=== PATIENT | female | born 1985 | race Caucasian/White ===

== ENCOUNTER 2017-03-27 10:00 | Emergency (ER) | payer OTHER ==
[2017-03-27 10:00] VITALS: BMI 36.1
[2017-03-27 10:09] VITALS: TEMP 98.7; O2SAT 100
--- NOTE | 2017-03-27 11:54 | ED PDOC ---
Arrival/HPI - History of Present Illness Time/Duration: Prior to Arrival Symptom Onset: Gradual Symptom Course: Worsening Context: Home - General Chief Complaint: Back Pain Time Seen by Provider: 03/27/17 10:54 - History of Present Illness Narrative History of Present Illness (Text): 03/27/17 11:46 31 yo female with no significant PMH presented with neck pain and pain in extremities. Patient states that over the past 2 months she has been experiencing pain, weakness and numbness in all four extremities mostly at night. However over the past 2 weeks her symptoms have been getting progressively worse. Over the past 4 days the pain has been occurring during the day as well. Patient describes a hot sensation in her extremities, and a sharp, cutting pain. Patient states the pain started at the back of her neck and spread sown to all 4 extremities. She denies fever, chills, sob, headaches. Denies recent travel outside [place]. (Christine Seaman) Past Medical History - Provider Review Nursing Documentation Reviewed: Yes - Travel History Have you recently traveled outside [place] w/in the past 3 mons?: No - Past History Past History: No Previous - Infectious Disease Hx of Infectious Diseases: None - Psychiatric Hx Substance Use: No - Surgical History Hx Section: Yes - Suicidal Assessment Feels Threatened In Home Enviroment: No Family/Social History - Physician Review Nursing Documentation Reviewed: Yes Family/Social History: No Known Family HX Smoking Status: Never Smoked Hx Alcohol Use: No Hx Substance Use: No Allergies/Home Meds Allergies/Adverse Reactions: Allergies No Known Allergies Allergy (Verified 03/27/17 10:05) Home Medications: Home Meds Medication Instructions Recorded Confirmed No Known Home Med 03/27/17 03/27/17 Review of Systems - Review of Systems Constitutional: Normal. absent: Fatigue, Fevers Eyes: Normal. absent: Vision Changes, Eye Pain ENT: Normal Respiratory: Normal. absent: SOB, Cough, Wheezing Cardiovascular: Normal. absent: Palpitations, Syncope Gastrointestinal: Normal. absent: Abdominal Pain, Constipation, Diarrhea, Nausea, Vomiting Genitourinary Female: Normal. absent: Dysuria, Frequency, Hematuria Musculoskeletal: Normal, Back Pain, Neck Pain, Myalgias Skin: Normal. absent: Rash, Pruritis, Laceration Neurological: Dizziness. absent: Headache Endocrine: Normal. absent: Diaphoresis Hemo/Lymphatic: Normal. absent: Easy Bleeding, Easy Bruising Psychiatric: Normal Physical Exam - Systems Exam Head: Present: Atraumatic, Normocephalic Pupils: Present: PERRL. No: Sluggish, Non-Reactive, Pinpoint Extroacular Muscles: Present: EOMI. No: Gaze Palsy, Entrapment Conjunctiva: Present: Normal Mouth: Present: Moist Mucous Membranes. No: Dry Pharnyx: Present: Normal. No: ERYTHEMA, EXUDATE Nose (External): Present: Atraumatic. No: Abrasion, Contusion Neck: Present: Normal Range of Motion, MIDLINE TENDERNESS Respiratory/Chest: Present: Clear to Auscultation, Good Air Exchange. No: Respiratory Distress, Accessory Muscle Use, Wheezes, Rhonchi, Tachypneic Cardiovascular: Present: Regular Rate and Rhythm, Normal S1, S2. No: Murmurs, Tachycardic Abdomen: Present: Tenderness, Normal Bowel Sounds. No: Distention, Peritoneal Signs Back: Present: Normal Inspection. No: Midline Tenderness, Paraspinal Tenderness Upper Extremity: Present: Normal ROM, NORMAL PULSES, Tenderness. No: Cyanosis, Swelling Lower Extremity: Present: NORMAL PULSES, Normal ROM, Tenderness. No: Edema, Cyanosis, Swelling Neurological: Present: GCS=15, CN II-XII Intact, Speech Normal Skin: Present: Warm, Dry, Normal Color. No: Rashes Psychiatric: Present: Alert, Oriented x 3 Vital Signs Temp Pulse Resp BP Pulse Ox 03/27/17 14:04 82 16 110/72 100 03/27/17 11:26 89 18 109/77 100 03/27/17 10:05 98.7 F 98 H 16 107/71 100 Medical Decision Making ED Course and Treatment: 03/27/17 15:14 Patient seen and examined with resident Came up with treatment and disposition plan with resident 31yo female with upper extr. and neck pain. states feels like numbness, tingling and paresthesias. pt has no focal neurological deficits on examination. no visual complaints. pt instructed to f/u with outpatient clinic/ physician for further w/u pt states she is asymptomatic on discharge and agrees with being dc'd home. states she feels comfortable being dc'd home from the ER. (Sharif Starkey) 03/27/17 12:01 Impression: 31 yo female with no significant PMH present with pain in all extremities. Differential Diagnosis included but are not limited to: cervical radiculopathy Plan: - CBC, CMP - CT of cervical spine -- Reassess and disposition Progress Notes: 03/27/17 13:35 - CT of cervical spine was unremarkable. Labs were reviewed all within normal limits. Results were discussed with patient, all questions answered. She is in agreement to be discharged home. (Jurgen,Christine) - Lab Interpretations Lab Results: 03/27/17 12:40 03/27/17 12:40 Lab Results 03/27/17 12:40: Sodium 139, Potassium 4.0, Chloride 105, Carbon Dioxide 24, Anion Gap 14, BUN 9, Creatinine 0.6, Est GFR ( Amer) > 60, Est GFR (Non- Af Amer) > 60, Random Glucose 103, Calcium 9.6 03/27/17 12:40: WBC 8.1 D, RBC 4.03, Hgb 12.2, Hct 36.6, MCV 90.8, MCH 30.3, MCHC 33.3, RDW 12.9, Plt Count 288, MPV 9.2 - RAD Interpretation Radiology Orders: 03/27/17 11:45 CERVICAL SPINE W/O CONTRAST [CT] Stat Disposition/Present on Arrival - Present on Arrival Any Indicators Present on Arrival: No History of DVT/PE: No History of Uncontrolled Diabetes: No Urinary Catheter: No History of Decub. Ulcer: No History Surgical Site Infection Following: None - Disposition Have Diagnosis and Disposition been Completed?: Yes Disposition Time: 13:40 Patient Plan: Discharge - Disposition Diagnosis: Cervical radiculopathy Disposition: HOME/ ROUTINE Condition: FAIR Additional Instructions: Please return to the emergency department for new or symptoms. Please return if you can not follow up with PMD in 1-2 days. Referrals: Efrain Tang MD [Staff Provider] - Follow up with primary PCP,NO [Primary Care Provider] - Follow up with primary
--- NOTE | 2017-03-27 12:32 | CT ---
PROCEDURE: CT Cervical Spine without contrast HISTORY: Neck pain COMPARISON: None available. TECHNIQUE: Axial computed tomography images were obtained of the cervical spine without the use of intravenous contrast. Coronal and sagittal reformatted images were created and reviewed. Radiation dose: Total exam DLP = 530 mGy-cm. This CT exam was performed using one or more of the following dose reduction techniques: Automated exposure control, adjustment of the mA and/or kV according to patient size, and/or use of iterative reconstruction technique. FINDINGS: VERTEBRAE: No fracture. Normal alignment. No destructive bony lesion. DISCS/SPINAL CANAL/NEURAL FORAMINA: No significant central canal or neural foraminal stenosis. Discs heights are grossly preserved. PARASPINAL SOFT TISSUES: Unremarkable. OTHER FINDINGS: None. IMPRESSION: Unremarkable CT of the cervical spine.
[2017-03-27 13:08] LABS: BLOOD UREA NITROGEN 9 mg/dL (7-21); CALCIUM 9.6 mg/dL (8.4-10.5); CARBON DIOXIDE 24 mmol/L (21-33); CHLORIDE 105 mmol/L (98-107); GFR AFRICAN-AMERICAN > 60; GLUCOSE,RANDOM 103 mg/dL (70-110); HEMATOCRIT 36.6 % (36.0-48.0); MEAN CELL VOLUME 90.8 fL (80.0-105.0); MEAN CORPUSCULAR HEMOGLOBIN 30.3 pg (25.0-35.0); MEAN CORPUSCULAR HGB CONC 33.3 g/dl (31.0-37.0); MEAN PLATELET VOLUME 9.2 fl (7.0-11.0); RED CELL DISTRIBUTION WIDTH 12.9 % (11.5-14.5); SODIUM 139 mmol/L (132-148); WHITE BLOOD COUNT 8.1 10^3/ul (4.5-11.0)
[2017-03-27 14:06] VITALS: BP 110/72; PULSE 82; RESP 16
== END 2017-03-27 14:06 | disposition home or self-care (01) ==
LOC: ED 10:00
DX: M54.12 Radiculopathy, cervical region (principal)

== ENCOUNTER 2018-08-29 23:57 | Observation (INO) | payer MEDICAID, OTHER ==
[2018-08-30 00:08] VITALS: BMI 33.6
[2018-08-30] MEDS ORDERED: Sodium Chloride 0.9% 1,000 ML IV STA (00:34)
[2018-08-30] MEDS ORDERED: TDAP Vaccine 0.5 mL Syr IM ONE (00:34)
--- NOTE | 2018-08-30 00:36 | ED PDOC ---
Arrival/HPI - General Historian: Patient - History of Present Illness Narrative History of Present Illness (Text): 08/30/18 00:33 Rachel Argueta is a 33 year old female, with no significant past medical history, who presents to the Emergency department status post fall 2 hours prior to arrival. Patient states she was taking a shower when she became dizzy and near-syncopal, described as feeling off-balance. Patient states she fell backwards and hit her left face/chin against a shower poly area supervisor on her way down. Patient sustained an abrasion to her chin and is complaining of neck pain, left- sided facial pain, headache, left shoulder pain, and dizziness. Patient states she continued to feel dizzy after falling and needed assistance getting up. Patient states she felt fine throughout the day and prior to the incident. Patient denies any chest pain, shortness of breath, nausea, vomiting, back pain, weakness/numbness/tingling in the extremities, or any other complaints. Time/Duration: 1-3 hours, Other (tonight) Symptom Course: Unchanged Activities at Onset: Light Context: Home, Slipped <Mercedes Ortiz - Last Filed: 08/30/18 01:45> <Melo Tesfaye - Last Filed: 08/30/18 05:03> - General Chief Complaint: Trauma Time Seen by Provider: 08/29/18 23:57 Past Medical History - Provider Review Nursing Documentation Reviewed: Yes - Travel History Have you recently traveled outside [place] w/in the past 3 mons?: No - Past History Past History: No Previous - Infectious Disease Hx of Infectious Diseases: None - Cardiac Hx Cardiac Disorders: No - Pulmonary Hx Respiratory Disorders: No - Neurological Hx Neurological Disorder: No - HEENT Hx HEENT Disorder: No - Renal Hx Renal Disorder: No - Endocrine/Metabolic Hx Endocrine Disorders: No - Hematological/Oncological Hx Blood Disorders: No - Integumentary Hx Dermatological Disorder: No - Musculoskeletal/Rheumatological Hx Musculoskeletal Disorders: No - Gastrointestinal Hx Gastrointestinal Disorders: No - Genitourinary/Gynecological Hx Genitourinary Disorders: No - Psychiatric Hx Psychophysiologic Disorder: No Hx Substance Use: No - Surgical History Hx Section: Yes - Anesthesia Hx Anesthesia: No - Suicidal Assessment Feels Threatened In Home Enviroment: No <Mercedes Ortiz - Last Filed: 08/30/18 01:45> Family/Social History - Physician Review Nursing Documentation Reviewed: Yes Family/Social History: Unknown Family HX Smoking Status: Never Smoked Hx Alcohol Use: No Hx Substance Use: No <MahendraMo martinezevelyne Mckeon - Last Filed: 08/30/18 01:45> Allergies/Home Meds <Mercedes Ortiz Linda - Last Filed: 08/30/18 01:45> <Melo Tesfaye - Last Filed: 08/30/18 05:03> Allergies/Adverse Reactions: Allergies No Known Allergies Allergy (Verified 03/27/17 10:05) Home Medications: Home Meds Medication Instructions Recorded Confirmed No Known Home Med 03/27/17 08/30/18 Review of Systems - Physician Review All systems were reviewed & negative as marked: Yes - Review of Systems Constitutional: Normal. absent: Fevers Eyes: absent: Vision Changes, Photophobia, Eye Pain ENT: Normal Respiratory: Normal. absent: SOB, Cough Cardiovascular: Palpitations, Other (+near-syncopal). absent: Chest Pain Gastrointestinal: Normal. absent: Abdominal Pain, Diarrhea, Nausea, Vomiting Genitourinary Female: Normal. absent: Dysuria, Frequency, Hematuria, Urine Output Changes Musculoskeletal: Neck Pain Skin: Normal, Other (abrasion to chin) Neurological: Headache, Dizziness. absent: Speech Changes Psychiatric: Normal. absent: Anxiety, Depression <MahendraMo martinezevelyne Mckeon - Last Filed: 08/30/18 01:45> Physical Exam Vital Signs Reviewed: Yes Vital Signs Temp Pulse Resp BP Pulse Ox 08/30/18 00:07 98.9 F 114 H 18 129/90 99 Temperature: Afebrile Blood Pressure: Normal Pulse: Regular Respiratory Rate: Normal Appearance: Positive for: Well-Appearing, Non-Toxic, Comfortable Pain Distress: None Mental Status: Positive for: Alert and Oriented X 3 - Systems Exam Head: Present: Normocephalic, Tenderness (Tenderness over left TMJ, tender to L inferior orbit), Abrasion (V-shaped superficial abrasion to left inferior chin). No: Swelling, Ecchymosis Pupils: Present: PERRL Extroacular Muscles: Present: EOMI. No: Entrapment Conjunctiva: Present: Normal Ears: Present: Normal, NORMAL TM, Normal Canal. No: Erythema, TM Bulging, Fluid, TM Perf Mouth: Present: Moist Mucous Membranes Pharnyx: Present: Normal. No: ERYTHEMA, EXUDATE, TONSILS ENLARGED, Peritonsilar Swelling, Uvular Deviation, Muffled/Hoarse Voice, Strider, Soft Palate/Uvular Edema Nose (External): Present: Atraumatic Nose (Internal): Present: Normal Inspection Neck: Present: MIDLINE TENDERNESS (Midline cervical tenderness), Paraspinal Tenderness (Left-sided paraspinal and trapezius tenderness). No: Meningeal Signs Respiratory/Chest: Present: Clear to Auscultation, Good Air Exchange. No: Respiratory Distress, Accessory Muscle Use Cardiovascular: Present: Regular Rate and Rhythm, Normal S1, S2. No: Murmurs Abdomen: No: Tenderness, Distention, Peritoneal Signs Back: Present: Normal Inspection Upper Extremity: Present: Tenderness (Tenderness to posterior left shoulder), Other (Golf-ball sized area of ecchymosis to left shoulder). No: Cyanosis, Edema Lower Extremity: Present: Normal Inspection, NORMAL PULSES, Normal ROM. No: Edema Neurological: Present: GCS=15, Speech Normal, Motor Func Grossly Intact (Motor strength 5/5 in all extremities), Normal Sensory Function, Normal Cerebellar Funct Skin: Present: Warm, Dry, Normal Color. No: Rashes Psychiatric: Present: Alert, Oriented x 3, Normal Insight, Normal Concentration <Mercedes Ortiz - Last Filed: 08/30/18 01:45> Vital Signs Temp Pulse Resp BP Pulse Ox 08/30/18 00:07 98.9 F 114 H 18 129/90 99 <Melo Tefsaye - Last Filed: 08/30/18 05:03> Medical Decision Making ED Course and Treatment: 08/30/18 00:33 Impression: 33 year old female complaining of headache, left-sided facial pain, neck pain, and dizziness s/p fall Plan: -- CT Head w/o contrast -- CT Maxillofacial w/o contrast -- CT Cervical Spine w/o contrast -- EKG -- Chest X-ray -- XR Left Shoulder -- CBC, CMP, cardiac enzymes -- Urinalysis, urine cultures -- IV fluids -- TDAP -- Reassess and disposition Prior Visits: Notes and results from previous visits were reviewed. Progress Notes: Ekg; sinus tachycardia at 113 bpm normal axis no ST elevations 08/30/18 01:43 case signed out to dr. tesfaye pending labs/ct/xrays/ re-evaluation and disposition. <Mercedes Ortiz - Last Filed: 08/30/18 01:45> ED Course and Treatment: 08/30/18 03:41 Reviewed radiology, XR Left Shoulder shows no acute processes/fracture. Chest X-ray shows no acute processes. CT Head: Normal size of the ventricles and extra-axial spaces for the patient's age. Normal white matter tracts of the supratentorial brain. Normal basal ganglia and thalami. Normal brainstem. Normal cerebellum. There is no demonstrated extra-axial, intraparenchymal, or intraventricular hemorrhage. There are no findings of an acute ischemic infarction. Normal calvarium. There is no demonstrated fracture. Normal soft tissue structures. Normal visualized paranasal sinuses. IMPRESSION: Normal unenhanced CT scan of the brain. Electronically signed on Aug 30, 2018 4:01:16 AM EST by: Hans Che M.D., Certified by BARBI, K, Neuroradiology CT Maxillofacial: Left maxillary dentigerous cyst. Associated sinusitis. Normal bilateral orbital contents. Normal bilateral medial and inferior orbital hopper. Normal bilateral maxillary bones. Normal bilateral maxillary sinuses. Normal bilateral frontozygomatic arches. Normal bilateral zygomatic temporal arches. Normal nasal bones. Normal anterior nasal spine. There is no demonstrated fracture. Normal visualized frontal, ethmoidal and sphenoid sinuses. Impression: No CT evidence of acute bone pathology. Electronically signed on Aug 30, 2018 4:24:07 AM EST by: Hans Che M.D., Certified by BARBI, MSHiral, Neuroradiology 08/30/18 04:50 CT Cervical Spine: Normal craniovertebral junction. Normal anterior atlantoaxial articulation. Normal odontoid process. Normal cervical lordosis. Normal vertebral bodies and posterior osseous elements. C2-3: Normal endplates. Normal disc height and morphology. Normal bilateral uncovertebral and apophyseal joints. Normal central canal and intervertebral neuroforamina. C3-4: Normal endplates. Normal disc height and morphology. Normal bilateral uncovertebral and apophyseal joints. Normal central canal and intervertebral ne uroforamina. C4-5: Normal endplates. Normal disc height and morphology. Normal bilateral uncovertebral and apophyseal joints. Normal central canal and intervertebral neuroforamina. C5-6: Normal endplates. Normal disc height and morphology. Normal bilateral uncovertebral and apophyseal joints. Normal central canal and intervertebral neuroforamina. C6-7: Normal endplates. Normal disc height and morphology. Normal bilateral uncovertebral and apophyseal joints. Normal central canal and intervertebral neuroforamina. C7-T1: Normal endplates. Normal disc height and morphology. Normal bilateral uncovertebral and apophyseal joints. Normal central canal and intervertebral neuroforamina. Normal visualized soft tissue structures. IMPRESSION: Normal unenhanced CT examination of the cervical spine. Electronically signed on Aug 30, 2018 4:49:46 AM EST by: Hans Che M.D., Certified by ABR, MSK, Neuroradiology 08/30/18 04:50 Case discussed with medical aides teacher information technology manager, who is aware and agrees with plan. 08/30/18 04:[address] José Manuel Negrete, who is aware and agrees with plan. Accepts pt in to hospitalist service. Pt will go to Telemetry observation for near-syncope, dizziness, for headache/neck/facial injury. - Lab Interpretations I have reviewed the lab results: Yes - RAD Interpretation Radiology Orders: 08/30/18 00:32 CERVICAL SPINE W/O CONTRAST [CT] Stat HEAD W/O CONTRAST [CT] Stat MAXILLOFACIAL W/O CONTRAST [CT] Stat 08/30/18 00:33 CHEST PORTABLE [RAD] Stat 08/30/18 00:34 SHOULDER LEFT [RAD] Stat Contract Sheltered Workshop Supervisor: Radiologist - Medication Orders Current Medication Orders: Sodium Chloride (Sodium Chloride 0.9%) 1,000 mls @ 999 mls/hr IV .Q1H1M STA Stop: 08/30/18 01:34 Last Admin: 08/30/18 01:21 Dose: 999 mls/hr eMAR Start Stop Document 08/30/18 01:21 OCS (Rec: 08/30/18 01:21 OCS [id number]) Intravenous Solution Start Date 08/30/18 Start Time 01:21 End Date 08/30/18 End time 02:22 Total Infusion Time 61 Discontinued Medications Tetanus/Reduced Diphtheria/Acell Pertussis (Boostrix Vaccine Inj) 0.5 ml IM .ONCE ONE Stop: 08/30/18 00:35 Last Admin: 08/30/18 01:20 Dose: 0.5 ml <LuchoMelo - Last Filed: 08/30/18 05:03> - Scribe Statement The provider has reviewed the documentation as recorded by the Jerson Joe Provider Scribe Attestation: All medical record entries made by the Scribe were at my direction and personally dictated by me. I have reviewed the chart and agree that the record accurately reflects my personal performance of the history, physical exam, medical decision making, and the department course for this patient. I have also personally directed, reviewed, and agree with the discharge instructions and disposition. <Mercedes Ortiz - Last Filed: 08/30/18 01:45> - PA / MANAGER OF PMO / Resident Statement / has reviewed & agrees with the documentation as recorded. / has examined the patient and agrees with the treatment plan. <Melo Tesfaye - Last Filed: 08/30/18 05:03> Disposition/Present on Arrival - Present on Arrival Any Indicators Present on Arrival: No History of DVT/PE: No History of Uncontrolled Diabetes: No Urinary Catheter: No History of Decub. Ulcer: No History Surgical Site Infection Following: None - Disposition Disposition Time: 01:45 <Mercedes Ortiz - Last Filed: 08/30/18 01:45> - Present on Arrival Any Indicators Present on Arrival: No History of DVT/PE: No History of Uncontrolled Diabetes: No Urinary Catheter: No History of Decub. Ulcer: No History Surgical Site Infection Following: None - Disposition Have Diagnosis and Disposition been Completed?: Yes Disposition Time: 05:02 <Melo Tesfaye - Last Filed: 08/30/18 05:03> - Disposition Diagnosis: Near syncope, Head injury, Neck injury, Facial injury Disposition: HOSPITALIZED Condition: STABLE Referrals: Javi Ruano MD [Primary Care Provider] - Follow up with primary Forms: [employer] (Citizen Of [place])
[2018-08-30 02:10] LABS: ALB/GLOB RATIO 1.2 (1.1-1.8); ALBUMIN 4.5 g/dL (3.0-4.8); ALT/SGPT 32 U/L (7-56); AST/SGOT 28 U/L (14-36); BLOOD UREA NITROGEN 8 mg/dL (7-21); CALCIUM 9.5 mg/dL (8.4-10.5); GFR NON-AFRICAN AMERICAN > 60
[2018-08-30 02:21] LABS: TROPONIN I 0.02 ng/mL
[2018-08-30 02:32] LABS: BASO # 0.02 K/mm3 (0.0-2.0); BASO % 0.2 % (0.0-3.0); EOS % 0.1 % (1.5-5.0); GRAN # 9.19 (1.4-6.5); GRAN % 75.5 % (50.0-68.0); HEMOGLOBIN 12.8 g/dL (12.0-16.0); LYMPH # 2.2 (1.2-3.4); LYMPH % 18.2 % (22.0-35.0); MEAN CELL VOLUME 87.9 fl (80.0-105.0); MEAN CORPUSCULAR HEMOGLOBIN 29.8 pg (25.0-35.0); MEAN CORPUSCULAR HGB CONC 33.9 g/dl (31.0-37.0); MEAN PLATELET VOLUME 9.3 fl (7.0-11.0); MONO # 0.7 (0.1-0.6); RBC 4.3 10^6/uL (3.5-6.1); RED CELL DISTRIBUTION WIDTH 12.5 % (11.5-14.5); URINE BILIRUBIN NEGATIVE (NEGATIVE); URINE BLOOD NEGATIVE (NEGATIVE); URINE GLUCOSE (UA) NEGATIVE (NEGATIVE); URINE LEUKOCYTE ESTERASE NEGATIVE Leu/uL (NEGATIVE); URINE PROTEIN NEGATIVE mg/dL (<30 mg/dL); URINE UROBILINOGEN 0.2 E.U./dL (<1 E.U./dL); WHITE BLOOD COUNT 12.2 10^3/uL (4.5-11.0)
[2018-08-30 02:38] LABS: URINE APPEARANCE CLEAR (CLEAR); URINE COLOR LIGHT YELLOW (YELLOW)
--- NOTE | 2018-08-30 05:33 | CP.PCM.HP ---
History of Present Illness - History of Present Illness History of Present Illness: Gilmar Goodson DO, PGY-1 Hospitalist Admission History and Physical for Dr. Sebastián Negrete CC: pre-syncope, fall HPI: Ms. Argueta is a 33 year old female with no PMH who presented to ED following a fall yesterday evening while she was in the shower. She states that she was in the shower, the water was hot, the room was steamy and she began to feel light-headed. After she began to feel dizzy, she slipped and fell on the back of her head and neck on to the edge of the tub. She continued to feel dizzy and felt unable to get up. Only her two children were at home and a neighbor was called to help her up. Since the incident, she has been feeling worsening head and neck pain with nausea but denies feeling dizzy. She has not had any syncopal or pre-syncopal episodes similar to this in the past. Aside from THORNE, neck pain, nausea, and feeling anxious in the hospital since the incident she denies fever/chills, CP, SOB, palpitations, blurred vision, changes in urination, vomiting/abdominal pain, or peripheral pain/weakness. PMD: Javi Ruano Past Medical Hx: none Past Surgical Hx: c/s x 1 Allergies: NKA Home medications: no home medications Family Hx: reviewed, non-contributory Social Hx: denies current or prior tobacco, alcohol, or drug use. She has two young children at home and is a full-time home teaching grades 9 thru 12 teacher. Pharmacy: no preferred pharmacy Present on Admission - Present on Admission Any Indicators Present on Admission: No History of DVT/PE: No History of Uncontrolled Diabetes: No Urinary Catheter: No Decubitus Ulcer Present: No Review of Systems - Constitutional Constitutional: absent: Chills, Fever - EENT Eyes: absent: Blurred Vision - Cardiovascular Cardiovascular: absent: Chest Pain, Chest Pain at Rest, Chest Pain with Activity, Diaphoresis, Dyspnea, Palpitations - Respiratory Respiratory: absent: Cough, Dyspnea, Wheezing - Gastrointestinal Gastrointestinal: Nausea. absent: Abdominal Pain, Vomiting - Genitourinary Genitourinary: absent: Change in Urinary Stream, Difficulty Urinating - Neurological Neurological: Headaches. absent: Dizziness, Numbness, Syncope, Weakness Past Patient History - Infectious Disease Hx of Infectious Diseases: None - Past Social History Smoking Status: Never Smoked - CARDIAC Hx Cardiac Disorders: No - PULMONARY Hx Respiratory Disorders: No - NEUROLOGICAL Hx Neurological Disorder: No - HEENT Hx HEENT Problems: No - RENAL Hx Chronic Kidney Disease: No - ENDOCRINE/METABOLIC Hx Endocrine Disorders: No - HEMATOLOGICAL/ONCOLOGICAL Hx Blood Disorders: No - INTEGUMENTARY Hx Dermatological Problems: No - MUSCULOSKELETAL/RHEUMATOLOGICAL Hx Musculoskeletal Disorders: No - GASTROINTESTINAL Hx Gastrointestinal Disorders: No - GENITOURINARY/GYNECOLOGICAL Hx Genitourinary Disorders: No - PSYCHIATRIC Hx Psychophysiologic Disorder: No Hx Substance Use: No - SURGICAL HISTORY Hx Section: Yes - ANESTHESIA Hx Anesthesia: No Meds Allergies/Adverse Reactions: Allergies Allergy/AdvReac Type Severity Reaction Status Date / Time No Known Allergies Allergy Verified 03/27/17 10:05 Physical Exam - Constitutional Appears: Non-toxic, No Acute Distress - Head Exam Head Exam: ATRAUMATIC, NORMOCEPHALIC - Eye Exam Eye Exam: EOMI, Normal appearance, PERRL - ENT Exam ENT Exam: Mucous Membranes Moist - Neck Exam Neck exam: Positive for: Full Rom, Normal Inspection, Tenderness (paraspinal tenderness to palpation). Negative for: Lymphadenopathy, Meningismus, Th yromegaly - Respiratory Exam Respiratory Exam: Clear to Auscultation Bilateral, NORMAL BREATHING PATTERN. absent: Rales, Rhonchi, Wheezes - Cardiovascular Exam Cardiovascular Exam: Tachycardia, REGULAR RHYTHM, +S1, +S2. absent: Diastolic murmur, Gallop, Rubs, Systolic Murmur - GI/Abdominal Exam GI & Abdominal Exam: Normal Bowel Sounds, Soft. absent: Guarding, Tenderness - Extremities Exam Extremities exam: Positive for: normal inspection. Negative for: pedal edema - Back Exam Back exam: NORMAL INSPECTION - Neurological Exam Neurological exam: Alert, Oriented x3 - Psychiatric Exam Psychiatric exam: Anxious - Skin Skin Exam: Dry, Intact, Warm Results - Vital Signs Recent Vital Signs: Last Vital Signs Temp 98.9 F 08/30/18 00:07 Pulse 102 H 08/30/18 05:25 Resp 18 08/30/18 05:25 BP 147/90 08/30/18 05:25 Pulse Ox 99 08/30/18 05:25 - Labs Result Diagrams: 08/30/18 01:40 08/30/18 01:40 Labs: Laboratory Results - last 24 hr 08/30/18 08/30/18 08/30/18 01:40 01:40 01:40 WBC 12.2 H RBC 4.30 Hgb 12.8 Hct 37.8 MCV 87.9 MCH 29.8 MCHC 33.9 RDW 12.5 Plt Count 364 MPV 9.3 Gran % 75.5 H Lymph % (Auto) 18.2 L [place] % (Auto) 6.0 Eos % (Auto) 0.1 L Baso % (Auto) 0.2 Gran # 9.19 H Lymph # (Auto) 2.2 [place] # (Auto) 0.7 H Eos # (Auto) 0.0 Baso # (Auto) 0.02 Sodium 140 Potassium 3.7 Chloride 104 Carbon Dioxide 26 Anion Gap 13 BUN 8 Creatinine 0.7 Est GFR ( Amer) > 60 Est GFR (Non-Af Amer) > 60 Random Glucose 107 Calcium 9.5 Total Bilirubin 0.7 AST 28 ALT 32 Alkaline Phosphatase 77 Lactate Dehydrogenase 605 Total Creatine Kinase 220 Troponin I 0.02 D Total Protein 8.3 Albumin 4.5 Globulin 3.7 Albumin/Globulin Ratio 1.2 Urine Color Light yellow Urine Appearance Clear Urine pH 6.0 Ur Specific [place] 1.010 Urine Protein Negative Urine Glucose (UA) Negative Urine Ketones Negative Urine Blood Negative Urine Nitrate Negative Urine Bilirubin Negative Urine Urobilinogen 0.2 Ur Leukocyte Esterase Negative Assessment & Plan - Assessment and Plan (Free Text) Assessment: 33 yo F with no PMH is admitted following pre-syncopal symptoms and fall. Plan: 1. Fall Pre-syncopal symptoms and subsequent fall likely due to heat/steam from shower Will complete pre-syncopal w/u with TTE, b/l carotid duplex, orthostatic VS, TSH Consider cardiology and/or neurology consultation if any of the w/u is abnormal 2. Head/neck pain Likely 2/2 musculoskeletal strain from fall, no concerning meningeal s/sx CT head, maxiofacial, and cervical spine negative for fx or other acute process Motrin PRN for pain and zofran PRN for nausea 3. Elevated HR, BP Likely 2/2 anxiety from prior fall and/or being in the hospital Patient states she is anxious at this time Continue to monitor Consider treatment for HTN if elevated BP readings persist DVT/GI PPX: SCD, protonix Full Code Regular diet Monitor on remote tele Case and plan reviewed and discussed with my attending Dr. Sebastián Goodson, DO IM Resident PGY-1
[2018-08-30 06:10] LABS: BASO # 0.02 K/mm3 (0.0-2.0); BASO % 0.2 % (0.0-3.0); EOS % 0.2 % (1.5-5.0); GRAN # 6.81 (1.4-6.5); GRAN % 64.9 % (50.0-68.0); HEMOGLOBIN 11.4 g/dL (12.0-16.0); LYMPH # 3.1 (1.2-3.4); LYMPH % 29.2 % (22.0-35.0); MEAN CELL VOLUME 88.2 fl (80.0-105.0); MEAN CORPUSCULAR HEMOGLOBIN 29.3 pg (25.0-35.0); MEAN CORPUSCULAR HGB CONC 33.2 g/dl (31.0-37.0); MEAN PLATELET VOLUME 9.1 fl (7.0-11.0); MONO # 0.6 (0.1-0.6); MONO % 5.5 % (1.0-6.0); RBC 3.89 10^6/uL (3.5-6.1); RED CELL DISTRIBUTION WIDTH 12.6 % (11.5-14.5); WHITE BLOOD COUNT 10.5 10^3/uL (4.5-11.0)
[2018-08-30] MEDS: Pantoprazole 40 mg EC Tab PO SCH (06:28)
[2018-08-30 06:43] LABS: ALB/GLOB RATIO 1.2 (1.1-1.8); ALBUMIN 4.1 g/dL (3.0-4.8); ALT/SGPT 32 U/L (7-56); AST/SGOT 25 U/L (14-36); BLOOD UREA NITROGEN 5 mg/dL (7-21); CALCIUM 8.7 mg/dL (8.4-10.5); GFR NON-AFRICAN AMERICAN > 60
--- NOTE | 2018-08-30 08:46 | CARD ---
APPROVED REPORT Date of service: 08/30/2018 EKG Measurement Heart [id number] ID [id number] <Conclusion> Sinus tachycardia Otherwise normal ECG
--- NOTE | 2018-08-30 09:30 | CT ---
Date of service: 08/30/2018 PROCEDURE: CT HEAD WITHOUT CONTRAST. HISTORY: Headache COMPARISON: 09/29/2016. TECHNIQUE: Axial computed tomography images were obtained through the head/brain without intravenous contrast. Radiation dose: Total exam DLP = 844.59 mGy-cm. This CT exam was performed using one or more of the following dose reduction techniques: Automated exposure control, adjustment of the mA and/or kV according to patient size, and/or use of iterative reconstruction technique. FINDINGS: HEMORRHAGE: No intracranial hemorrhage. BRAIN: [place]-white matter differentiation is preserved. There is no mass, mass effect or abnormal extra-axial fluid collection. There is no territorial infarction. The midline sagittal structures are normal. VENTRICLES: The ventricles are normal in size, shape and configuration. CALVARIUM: There is no calvarial fracture or extracranial soft tissue swelling. PARANASAL SINUSES: Predominantly clear. MASTOID AIR CELLS: Predominantly clear. OTHER FINDINGS: None. IMPRESSION: No acute intracranial abnormality. A preliminary report was provided by [employer].
--- NOTE | 2018-08-30 09:39 | CT ---
Date of service: 08/30/2018 PROCEDURE: CT MAXILLOFACIAL BONES WITHOUT CONTRAST HISTORY: fall, left facial pain/ inferior orbit, TMJ COMPARISON: None available. TECHNIQUE: Contiguous axial CT images of the maxillofacial bones were obtained. Coronal and sagittal reformats were generated. Radiation dose: Total exam DLP = 697.39 mGy-cm. This CT exam was performed using one or more of the following dose reduction techniques: Automated exposure control, adjustment of the mA and/or kV according to patient size, and/or use of iterative reconstruction technique. FINDINGS: NASAL BONES: The nasal bones are intact. ORBITS: The globes are symmetric without any abnormality. No acute orbital fracture.. PARANASAL SINUSES/ MASTOIDS: There is a dentigerous cyst in the left maxillary sinus and moderate polypoid mucosal thickening in the left inferior maxilla. The remaining included paranasal sinuses are clear. MAXILLA: No acute maxillofacial fracture. MANDIBLE/ TEMPOROMANDIBULAR JOINTS: No acute fracture or dislocation. SKULL BASE: Unremarkable. TEMPORAL BONES: Middle ears and mastoid grossly unremarkable. OTHER FINDINGS: None. IMPRESSION: No acute nasal bone, orbital or maxillofacial fracture. 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 Chronic left maxillary sinusitis. A preliminary report was provided by [email or web address].
--- NOTE | 2018-08-30 09:43 | CT ---
Date of service: 08/30/2018 PROCEDURE: CT Cervical Spine without contrast HISTORY: Neck pain COMPARISON: None available. TECHNIQUE: Axial computed tomography images were obtained of the cervical spine without the use of intravenous contrast. Coronal and sagittal reformatted images were created and reviewed. Radiation dose: Total exam DLP = 550.03 mGy-cm. This CT exam was performed using one or more of the following dose reduction techniques: Automated exposure control, adjustment of the mA and/or kV according to patient size, and/or use of iterative reconstruction technique. FINDINGS: VERTEBRAE: There is normal alignment of the cervical vertebral bodies. There is straightening of the cervical spine with loss of normal cervical lordosis. Vertebral height is normal. Bone mineralization is normal. There is no acute fracture or traumatic anterior listhesis. The craniocervical junction is normal. The atlantoaxial joint normal. DISCS/SPINAL CANAL/NEURAL FORAMINA: Within the limitations of noncontrast CT, no significant central canal or neural foraminal stenosis. Discs heights are grossly preserved. PARASPINAL SOFT TISSUES: Unremarkable. OTHER FINDINGS: No prevertebral soft tissue thickening. No apical pneumothorax. IMPRESSION: No acute fracture or traumatic anterior listhesis. Straightening of the cervical spine may be positional or related to muscle spasm.
--- NOTE | 2018-08-30 10:20 | RAD ---
Date of service: 08/30/2018 HISTORY: dizziness, near syncope COMPARISON: 09/29/2016 FINDINGS: LUNGS: The lungs are well inflated and clear. PLEURA: No pleural effusions or pneumothorax. CARDIOVASCULAR: The heart is normal in size. No aortic atherosclerotic calcification present. OSSEOUS STRUCTURES: Within normal limits for the patient's age. VISUALIZED UPPER ABDOMEN: Normal. OTHER FINDINGS: None. IMPRESSION: No active pulmonary disease.
--- NOTE | 2018-08-30 10:27 | RAD ---
Date of service: 08/30/2018 PROCEDURE: <SHOULDER LEFT> HISTORY: left shoulder pain s/p fall COMPARISON: No prior. FINDINGS: BONES: Bone alignment and mineralization are normal. There is no acute displaced fracture or bone destruction. JOINTS: The glenohumeral and acromioclavicular joints are preserved. No significant degenerative osteoarthrosis. SOFT TISSUES: Normal. OTHER FINDINGS: None. IMPRESSION: No acute displaced fracture or dislocation.
--- NOTE | 2018-08-30 21:42 | CARD ---
APPROVED REPORT Date of service: 08/30/2018 EXAM: Two-dimensional and M-mode echocardiogram with Doppler and color Doppler. INDICATION PRE-SYNCOPE 2D DIMENSIONS IVSd0.7 (0.7-1.1cm)LVDd4.3 (3.9-5.9cm) PWd1.0 (0.7-1.1cm)LVDs3.0 (2.5-4.0cm) FS (%) 31.7 %LVEF (%)60.0 (>50%) M-Mode DIMENSIONS Left Atrium (MM)3.80 (2.5-4.0cm)Aortic Root2.90 (2.2-3.7cm) Aortic Cusp Exc.2.20 (1.5-2.0cm) Aortic Valve AoV Peak Srdwrbkp939.0cm/Main Peak GR.8mmHg Mitral Valve MV E Cxbsvevp43.4cm/sMV A Yojxuvsp82.3cm/sE/A ratio1.3 TDI Lateral E' Peak V15.10cm/sMedial E' Peak V7.70cm/sE/Lateral E'4.8 E/Medial E'9.4 Tricuspid Valve TR Peak [id number]/sRAP [id number] Peak Gr.24mmHg [id number] LEFT VENTRICLE The left ventricle is normal size. There is normal left ventricular wall thickness. The left ventricular function is normal.EF-60-65% There is normal LV segmental wall motion. The left ventricular diastolic function is normal. No left ventricle thrombus noted on this study. There is no ventricular septal defect visualized. There is no left ventricular aneurysm. There is no mass noted in the left ventricle. RIGHT VENTRICLE The right ventricle is normal size. There is normal right ventricular wall thickness. The right ventricular systolic function is normal. ATRIA The left atrium size is normal. The right atrium size is normal. The interatrial septum is intact with no evidence for an atrial septal defect. AORTIC VALVE The aortic valve is thickened but opens well. There is trace aortic regurgitation. There is no aortic valvular stenosis. There is no aortic valvular vegetation. MITRAL VALVE The mitral valve is thickened but opens well. Mitral regurgitation is trace . There is no mitral valve stenosis. There is no evidence of mitral valve prolapse. TRICUSPID VALVE The tricuspid valve is normal in structure. There is trace to mild tricuspid regurgitation.rvsp-34 mmof Hg. There is no tricuspid valve stenosis. There is no tricuspid valve prolapse or vegetation. PULMONIC VALVE The pulmonary valve is normal in structure. There is no pulmonic valvular regurgitation. There is no pulmonic valvular stenosis. GREAT VESSELS The aortic root is normal in size. The ascending aorta is normal in size. The pulmonary artery is normal. The IVC is normal in size and collapses >50% with inspiration. The IVC is normal in size and collapses >50% with inspiration. PERICARDIAL EFFUSION There is no pleural effusion. There is no pericardial effusion. <Conclusion> Normal chamber Size. [id number] MR/AR Trace to mild TR, RVSP-34 mmof Hg. There is no pericardial effusion.
[2018-08-31] MEDS: Pantoprazole 40 mg EC Tab PO SCH (04:59)
[2018-08-31 06:10] VITALS: BP 104/65; PULSE 97; RESP 18; TEMP 98.3; O2SAT 99
[2018-08-31 07:40] LABS: BASO # 0.02 K/mm3 (0.0-2.0); BASO % 0.3 % (0.0-3.0); EOS # 0.1 (0.0-0.7); EOS % 1.6 % (1.5-5.0); GRAN # 3.77 (1.4-6.5); GRAN % 53.7 % (50.0-68.0); HEMOGLOBIN 11.9 g/dL (12.0-16.0); LYMPH # 2.5 (1.2-3.4); LYMPH % 35.6 % (22.0-35.0); MEAN CELL VOLUME 90.2 fl (80.0-105.0); MEAN CORPUSCULAR HEMOGLOBIN 29.1 pg (25.0-35.0); MEAN CORPUSCULAR HGB CONC 32.2 g/dl (31.0-37.0); MEAN PLATELET VOLUME 9.2 fl (7.0-11.0); MONO # 0.6 (0.1-0.6); MONO % 8.8 % (1.0-6.0); RBC 4.09 10^6/uL (3.5-6.1); RED CELL DISTRIBUTION WIDTH 12.8 % (11.5-14.5)
[2018-08-31 07:46] LABS: ALB/GLOB RATIO 1.2 (1.1-1.8); ALT/SGPT 29 U/L (7-56); AST/SGOT 23 U/L (14-36); BLOOD UREA NITROGEN 4 mg/dL (7-21); CALCIUM 8.7 mg/dL (8.4-10.5); GFR NON-AFRICAN AMERICAN > 60
[2018-08-31 09:31] LABS: HDL CHOLESTEROL 38 mg/dL (29-60)
[2018-08-31 09:42] LABS: LDL CHOLESTEROL 104 mg/dL (0-129)
--- NOTE | 2018-08-31 11:42 | CP.PCM.DIS ---
<Josias Iverson - Last Filed: 08/31/18 11:40> Provider - Provider Date of Admission: 08/30/18 04:57 Attending physician: Ruchi Monteiro DO Primary care physician: Javi Ruano MD Consults: Neurology: Dr. Winters Time Spent in preparation of Discharge (in minutes): 40 Diagnosis - Discharge Diagnosis (1) Facial injury Status: Acute (2) Head injury Status: Acute (3) Near syncope Status: Acute Hospital Course - Lab Results Lab Results: Micro Results 08/30/18 01:40 Urine Urine Culture - Final No Growth (<1,000 CFU/ML) Most Recent Lab Values WBC 7.0 10^3/uL (4.5-11.0) D 08/31/18 07:00 RBC 4.09 10^6/uL (3.5-6.1) 08/31/18 07:00 Hgb 11.9 g/dL (12.0-16.0) L 08/31/18 07:00 Hct 36.9 % (36.0-48.0) 08/31/18 07:00 MCV 90.2 fl (80.0-105.0) 08/31/18 07:00 MCH 29.1 pg (25.0-35.0) 08/31/18 07:00 MCHC 32.2 g/dl (31.0-37.0) 08/31/18 07:00 RDW 12.8 % (11.5-14.5) 08/31/18 07:00 Plt Count 302 10^3/uL (120.0-450.0) 08/31/18 07:00 MPV 9.2 fl (7.0-11.0) 08/31/18 07:00 Gran % 53.7 % (50.0-68.0) 08/31/18 07:00 Lymph % (Auto) 35.6 % (22.0-35.0) H 08/31/18 07:00 [place] % (Auto) 8.8 % (1.0-6.0) H 08/31/18 07:00 Eos % (Auto) 1.6 % (1.5-5.0) 08/31/18 07:00 Baso % (Auto) 0.3 % (0.0-3.0) 08/31/18 07:00 Gran # 3.77 (1.4-6.5) 08/31/18 07:00 Lymph # (Auto) 2.5 (1.2-3.4) 08/31/18 07:00 [place] # (Auto) 0.6 (0.1-0.6) 08/31/18 07:00 Eos # (Auto) 0.1 (0.0-0.7) 08/31/18 07:00 Baso # (Auto) 0.02 K/mm3 (0.0-2.0) 08/31/18 07:00 Sodium 139 mmol/L (132-148) 08/31/18 07:00 Potassium 4.0 mmol/L (3.6-5.0) 08/31/18 07:00 Chloride 107 mmol/L (98-107) 08/31/18 07:00 Carbon Dioxide 25 mmol/L (21-33) 08/31/18 07:00 Anion Gap 12 (10-20) 08/31/18 07:00 BUN 4 mg/dL (7-21) L 08/31/18 07:00 Creatinine 0.6 mg/dl (0.7-1.2) L 08/31/18 07:00 Est GFR ( Amer) > 60 08/31/18 07:00 Est GFR (Non-Af Amer) > 60 08/31/18 07:00 Random Glucose 97 mg/dL (70-110) 08/31/18 07:00 Calcium 8.7 mg/dL (8.4-10.5) 08/31/18 07:00 Phosphorus 3.2 mg/dL (2.5-4.5) 08/30/18 06:00 Magnesium 2.1 mg/dL (1.7-2.2) 08/30/18 06:00 Total Bilirubin 0.8 mg/dL (0.2-1.3) 08/31/18 07:00 AST 23 U/L (14-36) 08/31/18 07:00 ALT 29 U/L (7-56) 08/31/18 07:00 Alkaline Phosphatase 65 U/L (38-126) 08/31/18 07:00 Lactate Dehydrogenase 605 U/L (333-699) 08/30/18 01:40 Total Creatine Kinase 220 U/L (35-230) 08/30/18 01:40 Troponin I 0.02 ng/mL D 08/30/18 01:40 Total Protein 7.3 g/dL (5.8-8.3) 08/31/18 07:00 Albumin 4.0 g/dL (3.0-4.8) 08/31/18 07:00 Globulin 3.3 gm/dL 08/31/18 07:00 Albumin/Globulin Ratio 1.2 (1.1-1.8) 08/31/18 07:00 Triglycerides 79 mg/dL (35-160) 08/31/18 07:00 Cholesterol 163 mg/dL (130-200) 08/31/18 07:00 LDL Cholesterol Direct 104 mg/dL (0-129) 08/31/18 07:00 HDL Cholesterol 38 mg/dL (29-60) 08/31/18 07:00 Free T4 0.96 ng/dL (0.78-2.19) 08/30/18 06:00 TSH 3rd Generation 6.92 mIU/mL (0.46-4.68) H 08/30/18 06:00 Urine Color Light yellow (YELLOW) 08/30/18 01:40 Urine Appearance Clear (CLEAR) 08/30/18 01:40 Urine pH 6.0 (4.7-8.0) 08/30/18 01:40 Ur Specific [place] 1.010 (1.005-1.035) 08/30/18 01:40 Urine Protein Negative mg/dL (<30 mg/dL) 08/30/18 01:40 Urine Glucose (UA) Negative mg/dL (NEGATIVE) 08/30/18 01:40 Urine Ketones Negative mg/dL (NEGATIVE) 08/30/18 01:40 Urine Blood Negative (NEGATIVE) 08/30/18 01:40 Urine Nitrate Negative (NEGATIVE) 08/30/18 01:40 Urine Bilirubin Negative (NEGATIVE) 08/30/18 01:40 Urine Urobilinogen 0.2 E.U./dL (<1 E.U./dL) 08/30/18 01:40 Ur Leukocyte Esterase Negative [place]/uL (NEGATIVE) 08/30/18 01:40 - Hospital Course Hospital Course: 33 year old female with no past medical history who presented to [facility] ED following a fall while in her shower. Patient reported light headedness and dizzy symptoms with fall. Patient reported hitting her head, neck and shoulder during the fall. She reported no loss of consciousness, urinary/bowel incontinence, confusion after the fall. She denied being on blood thinners or having any clotting disorder history. Patient was evaluated in ED with Head CT, Maxillofacial CT, Cervical Spine CT, chest x ray and shoulder xray all. All imaging was negative for fractures. Patient was evaluated by neurology and found to be stable for discharge with plan for outpatient follow up. Patient had carotid artery US and echocardiogram during admission. Patient was monitored overnight without syncopal episodes, dizzy symptoms, palpitations or history of gait instability. Patient was deemed hemodynamically stable as well as medically stable for discharge with planned outpatient follow up. Discharge planning including outpatient follow up with primary medical doctor, neurology, signs and symptoms to be concerned for immediate return to emergency department. Patient verbally agreed and understood discharge planning. All questions were answered to patient's verbal agreement. For complete details regarding patient hospital course please see EMR. - Date & Time of H&P Date of H&P: 08/30/18 Discharge Exam - Head Exam Head Exam: ATRAUMATIC, NORMOCEPHALIC - Eye Exam Eye Exam: EOMI, PERRL - ENT Exam ENT Exam: Mucous Membranes Moist - Neck Exam Neck exam: Full Rom - Respiratory Exam Respiratory Exam: Clear to PA & Lateral, NORMAL BREATHING PATTERN, UNREMARKABLE. absent: Wheezes - Cardiovascular Exam Cardiovascular Exam: Tachycardia, REGULAR RHYTHM, +S1, +S2 - GI/Abdominal Exam GI & Abdominal Exam: Normal Bowel Sounds, Soft. absent: Tenderness - Extremities Exam Extremities exam: normal inspection - Neurological Exam Neurological exam: Alert, CN II-XII Intact, Normal Gait, Oriented x3, Reflexes Normal - Psychiatric Exam Psychiatric exam: Normal Affect, Normal Mood - Skin Skin Exam: Dry, Intact Discharge Plan - Follow Up Plan Condition: STABLE Disposition: HOME/ ROUTINE Instructions: Sinus Tachycardia (DC), Syncope (Fainting) (DC) Additional Instructions: Follow up with primary medical doctor within 3-5 days upon discharge Follow up with Neurologist within 1-2 weeks upon discharge Take medications as prescribed to you If you experience chest pain, shortness of breath, persistent fever or worsening symptoms return to the nearest emergency department Referrals: Chiara Winters MD [Staff Provider] - <Sukhjinder Cisneros - Last Filed: 08/31/18 16:42> Provider - Provider Date of Admission: 08/30/18 04:57 Attending physician: Ruchi Monteiro DO Primary care physician: Javi Ruano MD Hospital Course - Lab Results Lab Results: Micro Results 08/30/18 01:40 Urine Urine Culture - Final No Growth (<1,000 CFU/ML) Most Recent Lab Values WBC 7.0 10^3/uL (4.5-11.0) D 08/31/18 07:00 RBC 4.09 10^6/uL (3.5-6.1) 08/31/18 07:00 Hgb 11.9 g/dL (12.0-16.0) L 08/31/18 07:00 Hct 36.9 % (36.0-48.0) 08/31/18 07:00 MCV 90.2 fl (80.0-105.0) 08/31/18 07:00 MCH 29.1 pg (25.0-35.0) 08/31/18 07:00 MCHC 32.2 g/dl (31.0-37.0) 08/31/18 07:00 RDW 12.8 % (11.5-14.5) 08/31/18 07:00 Plt Count 302 10^3/uL (120.0-450.0) 08/31/18 07:00 MPV 9.2 fl (7.0-11.0) 08/31/18 07:00 Gran % 53.7 % (50.0-68.0) 08/31/18 07:00 Lymph % (Auto) 35.6 % (22.0-35.0) H 08/31/18 07:00 [place] % (Auto) 8.8 % (1.0-6.0) H 08/31/18 07:00 Eos % (Auto) 1.6 % (1.5-5.0) 08/31/18 07:00 Baso % (Auto) 0.3 % (0.0-3.0) 08/31/18 07:00 Gran # 3.77 (1.4-6.5) 08/31/18 07:00 Lymph # (Auto) 2.5 (1.2-3.4) 08/31/18 07:00 [place] # (Auto) 0.6 (0.1-0.6) 08/31/18 07:00 Eos # (Auto) 0.1 (0.0-0.7) 08/31/18 07:00 Baso # (Auto) 0.02 K/mm3 (0.0-2.0) 08/31/18 07:00 Sodium 139 mmol/L (132-148) 08/31/18 07:00 Potassium 4.0 mmol/L (3.6-5.0) 08/31/18 07:00 Chloride 107 mmol/L (98-107) 08/31/18 07:00 Carbon Dioxide 25 mmol/L (21-33) 08/31/18 07:00 Anion Gap 12 (10-20) 08/31/18 07:00 BUN 4 mg/dL (7-21) L 08/31/18 07:00 Creatinine 0.6 mg/dl (0.7-1.2) L 08/31/18 07:00 Est GFR ( Amer) > 60 08/31/18 07:00 Est GFR (Non-Af Amer) > 60 08/31/18 07:00 Random Glucose 97 mg/dL (70-110) 08/31/18 07:00 Calcium 8.7 mg/dL (8.4-10.5) 08/31/18 07:00 Phosphorus 3.2 mg/dL (2.5-4.5) 08/30/18 06:00 Magnesium 2.1 mg/dL (1.7-2.2) 08/30/18 06:00 Total Bilirubin 0.8 mg/dL (0.2-1.3) 08/31/18 07:00 AST 23 U/L (14-36) 08/31/18 07:00 ALT 29 U/L (7-56) 08/31/18 07:00 Alkaline Phosphatase 65 U/L (38-126) 08/31/18 07:00 Lactate Dehydrogenase 605 U/L (333-699) 08/30/18 01:40 Total Creatine Kinase 220 U/L (35-230) 08/30/18 01:40 Troponin I 0.02 ng/mL D 08/30/18 01:40 Total Protein 7.3 g/dL (5.8-8.3) 08/31/18 07:00 Albumin 4.0 g/dL (3.0-4.8) 08/31/18 07:00 Globulin 3.3 gm/dL 08/31/18 07:00 Albumin/Globulin Ratio 1.2 (1.1-1.8) 08/31/18 07:00 Triglycerides 79 mg/dL (35-160) 08/31/18 07:00 Cholesterol 163 mg/dL (130-200) 08/31/18 07:00 LDL Cholesterol Direct 104 mg/dL (0-129) 08/31/18 07:00 HDL Cholesterol 38 mg/dL (29-60) 08/31/18 07:00 Free T4 0.96 ng/dL (0.78-2.19) 08/30/18 06:00 TSH 3rd Generation 6.92 mIU/mL (0.46-4.68) H 08/30/18 06:00 Urine Color Light yellow (YELLOW) 08/30/18 01:40 Urine Appearance Clear (CLEAR) 08/30/18 01:40 Urine pH 6.0 (4.7-8.0) 08/30/18 01:40 Ur Specific [place] 1.010 (1.005-1.035) 08/30/18 01:40 Urine Protein Negative mg/dL (<30 mg/dL) 08/30/18 01:40 Urine Glucose (UA) Negative mg/dL (NEGATIVE) 08/30/18 01:40 Urine Ketones Negative mg/dL (NEGATIVE) 08/30/18 01:40 Urine Blood Negative (NEGATIVE) 08/30/18 01:40 Urine Nitrate Negative (NEGATIVE) 08/30/18 01:40 Urine Bilirubin Negative (NEGATIVE) 08/30/18 01:40 Urine Urobilinogen 0.2 E.U./dL (<1 E.U./dL) 08/30/18 01:40 Ur Leukocyte Esterase Negative [place]/uL (NEGATIVE) 08/30/18 01:40 Attending/Attestation - Attestation I have personally seen and examined this patient.: Yes I have fully participated in the care of the patient.: Yes I have reviewed all pertinent clinical information, including history, physical exam and plan: Yes Notes (Text): 08/31/18 16:39 33 year old female with no significant past medical history who presented with complaint of fall and syncope while in hot shower, possible vasovegal. She had CT head, cervical spine and maxillofacial which were negative for acute findings. She had shoulder xray and chest xray which were negative as well. She had carotid dopplers and echocardiogram. She was monitored in tele and had serial negative cardiac enzymes. She was seen by neurology who cleared patient for discharge with outpatient follow up. Patient is discharged home to follow up with pmd. Follow up with neurology. Sukhjinder Cisneros MD Hospitalist.
--- NOTE | 2018-08-31 16:30 | US ---
PROCEDURE: HISTORY: Carotid stenosis PHYSICIAN(S): Emery Larsen MD. TECHNIQUE: Duplex sonography and color-flow Doppler were used to evaluate the carotid bifurcations and limited segments of the vertebral arteries bilaterally. FINDINGS: There is mild intimal-medial thickening noted at the carotid bifurcations bilaterally. The peak systolic velocity in the proximal right internal carotid artery is 74 cm/sec. This corresponds to a 0-19 percent proximal right ICA stenosis. Normal systolic velocities are noted in the proximal right external carotid artery. There is antegrade flow in the right vertebral artery. The peak systolic velocity in the proximal left internal carotid artery is 85 cm/sec. This corresponds to a 0-19 percent proximal left ICA stenosis. Normal systolic velocities are noted in the proximal left external carotid artery. There is antegrade flow in the left vertebral artery. IMPRESSION: 1. Bilateral 0-19 percent proximal ICA stenoses. 2. Antegrade flow in both vertebral arteries.
== END 2018-08-31 14:42 | disposition home or self-care (01) ==
LOC: ED 23:57 → ERH 08-30 04:57 → 2RSO 08-30 09:06
PROVIDERS: ADMIT Hospitalist; ATTEND Hospitalist
DX: R55 Syncope and collapse (principal); S00.81XA Abrasion of other part of head, initial encounter; M54.2 Cervicalgia; M25.512 Pain in left shoulder; K09.0 Developmental odontogenic cysts; W01.198A Fall on same level from slipping, tripping and stumbling with subsequent striking against other object, initial encounter; Y92.002 Bathroom of unspecified non-institutional (private) residence as the place of occurrence of the external cause; Z98.891 History of uterine scar from previous surgery; Z23 Encounter for immunization
CPT/HCPCS: 36415; 70450; 70486; 71045; 72125; 73030; 80053; 80061; 81003; 82550; 83615; 83735; 84100; 84439; 84443; 84484; 85025; 87086; 90471; 90715; 93005; 93306; 93880; 96361; 96374; 99285; G0378; J1885; J7030